=== PATIENT | female | born 1985 | race Two or more races ===

== ENCOUNTER 2024-02-15 14:48 | Emergency (ER) | payer OTHER ==
[~2024-02-15] VITALS: Ht 144.8 cm; Wt 61.2 kg
[2024-02-15] MEDS ORDERED: 0.9 % SODIUM CHLORIDE 1,000 ML IV STA (15:28)
[2024-02-15] MEDS ORDERED: FAMOtidine 10 MG/ML (4ML VIAL) IV STA (15:30)
[2024-02-15] MEDS ORDERED: ONDANSETRON HCL 2 MG/ML VIAL ONE (15:47)
[2024-02-15] MEDS ORDERED: FAMOTIDINE/PF 20 MG/2 ML VIAL ONE ×2 (15:47→15:48)
[2024-02-15 16:24] LABS: PH,URINE 6.5 (5.0-8.0); URINE APPEARANCE Clear; URINE BILIRRUBIN Negative (NEGATIVE); URINE BLOOD Negative; URINE COLOR Yellow; URINE GLUCOSE Negative (NEGATIVE); URINE KETONE Negative (NEGATIVE); URINE LEUKOCYTE Negative; URINE NITRATE Negative; URINE PROTEIN Negative (NEGATIVE)
[2024-02-15 16:28] LABS: URINE BACTERIA 685.4 uL (0.0-1933); URINE EPITHELIAL CELLS 12.3 uL (0.0-38.8); URINE RBC 20.3 uL (0.0-20.8); URINE WBC 2.7 uL (0.0-23.2)
[2024-02-15 16:48] LABS: HEMOGLOBIN 14.7 g/dL (12.0-15.00); MEAN CELL VOLUME 85.2 fL (80.00-100.00); MEAN CORPUSCULAR HEMOGLOBIN 29.9 pg (27.00-32.0); MEAN CORPUSCULAR HGB CONC 35.1 g/dl (32.0-36.0); PLATELET COUNT 368 K/uL (150-450); RED BLOOD COUNT 4.92 M/uL (4.00-6.00); RED CELL DISTRIBUTION WIDTH 14.3 % (11.5-14.5)
[2024-02-15 16:52] LABS: URINE CAST 0.15 uL (0.0-1.40)
[2024-02-15 17:11] LABS: ALBUMIN 3.9 gm/dL (3.4-5.0); BILIRUBIN TOTAL 2.01 mg/dL (0.3-1.2); CALCIUM 9.4 mg/dL (8.5-10.1); CREATININE SERUM 0.56 mg/dL (0.55-1.02); GFR 119.9; GLOBULINA 4.3 G/DL (2.4-3.5); POTASSIUM 4.01 mEq/L (3.5-5.1); TOTAL PROTEIN 8.2 gm/dL (6.4-8.2)
== END 2024-02-15 20:11 | disposition home or self-care (01) ==
LOC: ER 14:48
PROVIDERS: General Practice
DX: R10.13 Epigastric pain (principal)